=== PATIENT | female | born 1955 | race Two or more races ===

== ENCOUNTER 2024-07-17 12:49 | Outpatient (CLI) | payer OTHER | END 2024-07-17 13:10 | disposition home or self-care (01) | LOC: SONOGRAMA 12:49 | PROVIDERS: ATTEND General Practice | DX: E34.9 Endocrine disorder, unspecified (principal); E03.1 Congenital hypothyroidism without goiter ==

== ENCOUNTER 2024-07-20 08:51 | Outpatient (CLI) | payer OTHER | END 2024-07-20 08:52 | disposition home or self-care (01) | LOC: NUCLEAR 08:51 | PROVIDERS: ATTEND Podiatrist | DX: I87.2 Venous insufficiency (chronic) (peripheral) (principal) ==

== ENCOUNTER 2024-07-23 09:07 | Emergency (ER) | payer OTHER ==
[~2024-07-23] VITALS: Ht 160 cm; Wt 57.6 kg
[2024-07-23] MEDS ORDERED: COZAAR100 MG PO (09:19)
[2024-07-23] MEDS ORDERED: LAMOTRIGINE100 MG PO (09:19)
[2024-07-23] MEDS ORDERED: ATENOLOL50 MG PO (09:19)
[2024-07-23 10:57] LABS: HEMATOCRIT 40.5 % (36.0-45.00); HEMOGLOBIN 13.9 g/dL (12.0-15.00); MEAN CELL VOLUME 88.5 fL (80.00-100.00); MEAN CORPUSCULAR HEMOGLOBIN 30.4 pg (27.00-32.0); MEAN CORPUSCULAR HGB CONC 34.3 g/dl (32.0-36.0); PLATELET COUNT 143 K/uL (150-450); RED BLOOD COUNT 4.58 M/uL (4.00-6.00)
[2024-07-23 11:33] LABS: CALCIUM 9.3 mg/dL (8.5-10.1); CREATININE SERUM 1.16 mg/dL (0.55-1.02); GFR 46.05; POTASSIUM 4.05 mEq/L (3.5-5.1)
[2024-07-23] MEDS ORDERED: 0.9 % SODIUM CHLORIDE 1,000 ML IV SCH (12:00)
[2024-07-23 14:17] LABS: URINE APPEARANCE Cloudy; URINE BILIRRUBIN Negative (NEGATIVE); URINE BLOOD Trace; URINE COLOR Yellow; URINE GLUCOSE Negative (NEGATIVE); URINE KETONE Trace (NEGATIVE); URINE LEUKOCYTE Negative; URINE NITRATE Negative; URINE PROTEIN Trace (NEGATIVE); URINE UROBILINOGEN 0.2 E.U./dl
[2024-07-23 14:18] LABS: URINE BACTERIA 37.7 uL (0.0-1933); URINE CAST 1.67 uL (0.0-1.40); URINE EPITHELIAL CELLS 9.2 uL (0.0-38.8); URINE RBC 15.5 uL (0.0-20.8); URINE WBC 8.1 uL (0.0-23.2)
== END 2024-07-23 15:23 | disposition home or self-care (01) ==
LOC: ER 09:08
PROVIDERS: Emergency Medicine
DX: R55 Syncope and collapse (principal); I10 Essential (primary) hypertension; Z20.822 Contact with and (suspected) exposure to COVID-19
CPT/HCPCS: 36415; 70450; 96365; 96366; 99284; J7030